=== PATIENT | female | born 1960 ===

== ENCOUNTER 2022-07-12 05:15 | Day surgery (SDC) | payer OTHER ==
[~2022-07-12 05:15] MED LIST: ARAVA10 MG; MILLIPRED5 MG
== END 2022-07-12 10:15 | disposition home or self-care (01) ==
LOC: CIR.AMB 05:15
PROVIDERS: ATTEND Surgery Surgery of the Hand
DX: M19.041 Primary osteoarthritis, right hand (principal); Z20.822 Contact with and (suspected) exposure to COVID-19; E78.5 Hyperlipidemia, unspecified; I10 Essential (primary) hypertension; M19.90 Unspecified osteoarthritis, unspecified site